=== PATIENT | female | born 1950 | race Caucasian/White ===

== ENCOUNTER 2024-06-11 12:14 | Emergency (ER) | payer MEDICARE, OTHER ==
[~2024-06-11 12:14] MED LIST: Iopamidol 370 76% 100 ML VIAL ONE
[2024-06-11] MEDS ORDERED: Acetaminophen 325 MG TAB ONE (13:24)
[2024-06-11 13:59] LABS: #Basophils 0.03 10x3/uL (0.0-0.2); #Eosinophils 0.14 10x3/uL (0.0-0.5); #Monocytes 1.11 10x3/uL (0.0-1.1); #Neutrophils 8.76 10x3/uL (1.5-8.4); %Basophils 0.2 % (0.0-2.0); %Eosinophils 1.1 % (0.0-6.0); %Lymphocytes 22.4 % (18.0-47.0); %Monocytes 8.5 % (0.0-10.0); %Neutrophils 67.3 % (40.0-75.0); Hematocrit 36.2 % (34.9-44.5); Hemoglobin 11.6 g/dL (12.0-15.5); Mean Corpuscular Hemoglobin 27.6 pg (27.0-33.0); Mean Platelet Volume 9.6 fL (7.4-10.4); Platelet Count 424 10x3/uL (150-450); RBC Distribution Width 18.4 % (11.5-14.5); Red Blood Cell (RBC) Count 4.21 10x6/uL (3.90-5.03); White Blood Cell (WBC) Count 13.02 10x3/uL (3.5-10.5)
[2024-06-11 14:12] LABS: ALT (SGPT) 33 U/L (Less than 34); AST (SGOT) 37 U/L (11-34); Alkaline Phosphatase 326 U/L (40-110); Anion Gap 18 mmol/L (10-20); BUN (Urea Nitrogen) 39 mg/dL (9.8-20.1); Bilirubin, Total 0.3 mg/dL (0.3-1.2); Calc. Creatinine Clearance 0 mL/min (70-130); Calcium 10.2 mg/dL (7.8-10.44); Carbon Dioxide 21 mmol/L (23-31); Chloride 102 mmol/L (98-107); Estimated GFR 30; Globulin 3.6 g/dL (2.4-3.5); Glucose 106 mg/dL (83-110); Lipase 36 U/L (8-78); Magnesium 1.9 mg/dL (1.6-2.6); Potassium 4.4 mmol/L (3.5-5.1); Protein, Total 6.6 g/dL (5.8-8.1); Sodium 137 mmol/L (136-145)
[2024-06-11 14:16] LABS: Troponin I 0.016 ng/mL (< 0.028)
== END 2024-06-11 16:36 | disposition home or self-care (01) ==
LOC: CSHERS 12:14
DX: E86.0 Dehydration (principal); I12.9 Hypertensive chronic kidney disease with stage 1 through stage 4 chronic kidney disease, or unspecified chronic kidney disease; N18.9 Chronic kidney disease, unspecified; M25.532 Pain in left wrist; E78.5 Hyperlipidemia, unspecified; Z87.891 Personal history of nicotine dependence; Z79.899 Other long term (current) drug therapy
CPT/HCPCS: 71275; 73100; 83690; 83735; 83880; 84484; 87428; 93005; Q9967; 80053; 84443; 85025